=== PATIENT | female | born 2000 | race African-American/Black ===

== ENCOUNTER 2018-01-28 01:48 | Emergency (ER) | payer SELFPAY ==
[~2018-01-28] VITALS: Ht 165.1 cm; Wt 68.0 kg
[2018-01-28 02:00] VITALS: BP 126/74
[2018-01-28] MEDS ORDERED: PROMETH-CODEIN 65 ML PO (02:17)
--- NOTE | 2018-01-28 02:17 | Emergency Room Report ---
History of Present Illness General Chief Complaint: Upper Respiratory Illness Source: Patient Present Illness HPI This is a 17-year-old female with no past medical history. She presents with chief complaint of cough. His been ongoing for a week and a half now. She already went to an ER and receive a Z-Tomás, Tessalon Perles, steroid and albuterol. It is not helping. Worse with inspiration. Cough is nonproductive in nature. No wheezing. No nausea no vomiting. Denies any fever or chills. Allergies: Coded Allergies: GUAIFENESIN (Verified Allergy, Unknown, 01/28/18) IBUPROFEN (Verified Allergy, Unknown, 01/28/18) Patient History Past Medical History: none, see triage record, old chart reviewed Past Surgical History: none Pertinent Family History: none Social History: Denies: smoking Last Menstrual Period: 01/21/2018 Now: No : 1 Para: 1 Immunizations: other Reviewed Nursing Documentation: PMH: Agreed; PSxH: Agreed Nursing Documentation-PMH Past Medical History: No Stated History Review of Systems Eye: Denies: eye pain, blurred vision ENT: Denies: ear pain, nose congestion, throat swelling Respiratory: Reports: cough; Denies: shortness of breath Cardiovascular: Denies: chest pain, palpitations Gastrointestinal: Denies: abdominal pain, diarrhea, nausea, vomiting Musculoskeletal: Denies: back pain, joint pain Skin: Denies: rash Neurological: Denies: headache, numbness Endocrine: Denies: increased thirst, increased urine Hematologic/Lymphatic: Denies: easy bruising All Other Systems: negative except mentioned in HPI Physical Exam Vital Signs Date Time Temp Pulse Resp B/P (MAP) Pulse Ox O2 Delivery O2 Flow Rate FiO2 01/28/18 01:57 98.4 119 16 114/73 98 Room Air vitals with tachycardia Sp02 EP Interpretation: reviewed, normal General Appearance: well appearing, no apparent distress, alert Head: normocephalic, atraumatic Eyes: bilateral eye PERRL, bilateral eye EOMI ENT: hearing grossly normal, normal pharynx Neck: full range of motion, supple, no meningismus Respiratory: chest non-tender, lungs clear, normal breath sounds, other - Coughing with inspiration Cardiovascular #1: regular rate, rhythm, no murmur Gastrointestinal: normal bowel sounds, non tender, no mass, no organomegaly, no bruit, non-distended Musculoskeletal: back normal, gait/station normal, normal range of motion Psychiatric: mood/affect normal Skin: warm/dry Medical Decision Making Diagnostic Impression: Primary Impression: Bronchitis, acute, with bronchospasm ER Course Patient with viral bronchitis with bronchospasm. She is taking inhaler already. She finished prednisone. We'll write for cough medicine. No evidence of bacterial infection. No evidence of ACS, PE, dissection to name a few. Last Vital Signs Date Time Temp Pulse Resp B/P (MAP) Pulse Ox O2 Delivery O2 Flow Rate FiO2 01/28/18 01:57 98.4 119 16 114/73 98 Room Air Status: improved Disposition: HOME, SELF-CARE Condition: Stable Scripts Promethazine HCl/Codeine (Prometh-Codein 6.25-10 mg/5 ml) 5 Ml Syrup 10 ML PO Q6HR, #120 ML Prov: Abdulkadir Phillips MD 01/28/18 Patient Instructions: Upper Respiratory Infection, Adult Additional Instructions: Use inhaler every 4 hours as needed for cough. Follow-up with your doctor in 7 days. Return if symptom worsen. Abdulkadir Phillips MD Jan 28, 2018 02:17
[2018-01-28 02:26] VITALS: BP 126/74
== END 2018-01-28 02:40 | disposition home or self-care (01) ==
LOC: EMR 02:34
DX: J20.9 Acute bronchitis, unspecified (principal); Z88.6 Allergy status to analgesic agent
CPT/HCPCS: 99282